=== PATIENT | male | born 1960 | race Caucasian/White ===

== ENCOUNTER 2016-12-10 16:49 | Inpatient (IN) | payer MEDICARE ==
[~2016-12-10] VITALS: Ht 170.2 cm; Wt 85.7 kg
[~2016-12-10 16:49] MED LIST: ALBU18HF INH; ASPI81TA3 PO; CITA20TA11 PO; ETOD500T PO; HYDR-3797 PO; INSU100C8 SUBQ; METO-301 PO; OMEP20CA11 PO; ONDA4TAB9 PO; PRAV40TA PO; TAMS0.4C98 PO
[2016-12-10 16:52] VITALS: BP 187/92; PULSE 96; RESP 20; O2SAT 100
[2016-12-10 18:01] LABS: BASOPHILS % (AUTO) 0.3 % (0-3); EOSINOPHILS % (AUTO) 0.1 % (0-5); MONOCYTES % (AUTO) 3.3 % (4-12); NEUTROPHILS % (AUTO) 77.1 % (40-74); Platelet Count 363 bil/L (150-400)
[2016-12-10] MEDS ORDERED: 0.9% Sodium Chloride 1,000 ML IV ONE (18:10)
[2016-12-10] MEDS ORDERED: MetoCLOpramide 5 mg/mL 2 mL Inj IVPUSH ONE (18:10)
[2016-12-10] MEDS ORDERED: HYDROmorphone 1 mg/mL Inj IVPUSH PRN ×2 (18:20→22:45)
--- NOTE | 2016-12-10 18:20 | ED.REPORT ---
HPI-Abd Pain M 40 and Over Date of Service December 10, 2016 ED Provider: Joseph Thakkar MD 56 y/o male with a hx of insulin-dependent DM presents to the ED complaining of sudden abdominal pain, onset approximately 10 hours ago. Associated sx include 10 episodes of vomiting, mild diarrhea, trace melena and mild dysuria. He denies chest pain. He has been using insulin regularly. The pt states his sx are similar to the last he presented to the ED with this complaint. The pt has been taking Bactrim for the last 2 days for an abscess on the abdomen.He did not take any today because he was vomiting. Nursing Notes Stated Complaint: DIABETIC GASTROPARESIS Chief Complaint: Male Abdominal Pain Nursing Notes Reviewed: Yes Allergies: Coded Allergies: morphine (Verified Adverse Reaction, Intermediate, nausea, upset stomach, 10/07/15) pt said hydromorphone makes him less "upset stomach and nausea" than morphine, "not allergic to any meds, just don't like to take it" Scheduled Aspirin Chew (Aspirin Chew) 81 Mg Chew 81 MG PO DAILY Citalopram (Citalopram) 20 Mg Tablet 20 MG PO DAILY Insulin Human Lispro (HumaLOG U100 Insulin Vial) 100 Unit/Ml Unit 23.7 UNITS SC DAILY INSULIN PUMP Metoclopramide (Metoclopramide) 10 Mg Tablet 10 MG PO DAILY Omeprazole (Omeprazole) 20 Mg Capsule.dr 20 MG PO BIDWM Simvastatin (Simvastatin) 40 Mg Tablet 40 MG PO HS Tamsulosin (Flomax) 0.4 Mg Capsule 0.4 MG PO HS hydrOXYzine Hcl (HydrOXYzine Hcl) 25 Mg Tablet 25 MG PO DAILY Scheduled PRN Albuterol Sulfate (Ventolin HFA Inhaler) 200 Puff/18 Gm Inhaler 2 PUFF INH Q4 PRN PRN For Wheezing Ondansetron ODT (Zofran ODT) 4 Mg Tablet 4 MG PO Q4H PRN PRN For Nausea General Time Seen by MD: 18:09 Chief Complaint Abdominal pain Hx Obtained From: Patient Arrived By: Walk-in Sudden in Onset?: Yes Onset Occurred: 5 - 8 hours ago Symptom Duration: Since onset Location: : Diffuse Quality: Same as prior, Painful Radiation: : Does not radiate Severity: Current: Moderate Severity: Maximum: Moderate Recent Healthcare: Recent doctor visit Similar Sx Previous: Yes Past Medical History Past Medical History Notes: EDG June 2015: Showed gastritis and submucosal hemmorhage Last admission: June 30-2015 Past Medical History 1. Diabetes Mellitus Type 1, with diabetic gastroparesis and DKA - hospitalized 10/04 to 10/06/14 2. Low back pain 3. BPH 4. Nocturia 5. Urinary retention 6. Presbiopia 7. Regular Astigmatism 8. MRSA Reports: COPD, Diabetes mellitus, GERD, Hyperlipidemia Reports: Depression Past Surgical History Reports: Appendectomy, Cholecystectomy Family History noncontributory Smoking History Former Smoker Social History Alcohol Use: Denies alcohol use Drug Use: THC Other Social History: Ambulatory Status Independent Review of Systems Cardiovascular: Denies: Chest pain GI: Reports: Abdominal pain, Diarrhea, Melena (Trace), Nausea, Vomiting Male: Reports Dysuria Complete sys rev & neg: except as marked. Physical Exam Initial Vital Signs Vital Signs (First) Date Time Temp Pulse Resp B/P Pulse Ox O2 Delivery O2 Flow Rate FiO2 12/10/16 16:52 35.6 96 20 187/92 100 Room Air Initial VS: Reviewed Head / Eyes: Atraumatic, Normocephalic Neck: Supple, Full range of motion Extremities: Vascular intact, Neuro intact, No swelling, No tenderness Skin: Warm, Dry, No cyanosis Neurologic: Alert, Oriented, Nonfocal General/Constitutional: Awake, Alert, Cooperative Distress / Hydration: Positive: Distress mild Respiratory / Chest: Atraumatic, Breath sounds NL, Breath sounds = bilat, No respiratory distress, No rales, No rhonchi, No wheezing Cardiovascular: Heart rate NL, Regular rhythm, Heart sounds NL, No gallop, No murmurs, Peripheral circulation NL, Pulses = bilaterally Abdomen: Atraumatic, Soft Tenderness/Guarding/Rebound: Positive: Tender epigastric Bowel Sounds / Distention: Positive: Bowel sounds hypoactive Pt vomiting. RLQ abdominal wall has a skin puncture site for insulin puncture. It has enduration and erythema but no fluctuance. LLQ abdominal wall has insulin pump connected. Back: Atraumatic, Full range of motion Skin: Atraumatic, Color NL, No rash, Warm, Dry Color / Condition: Positive: Diaphoresis present Interpretation & Diagnostics Anion Gap = 24. Blood gas report at 192 ph 7.385 pCO2 37 pO2 53.6 cHCO3- 17.6 cBase -7.6 Lab Results Interpretation Result Diagram: 12/10/16 1745 12/10/168 Test 12/10/16 17:45 White Blood Count 8.8th/mm3 (3.8-10.1) Red Blood Count 4.62mil/mm3 (4.40-5.80) Hemoglobin 14.8g/dL (13.8-17.2) Hematocrit 41.1% (41.0-50.0) Mean Corpuscular Volume 89.0fL (81-100) Mean Corpuscular Hemoglobin 32.0pg (27.0-35.0) Mean Corpuscular Hemoglobin Concent 36.0% (32.0-37.0) Red Cell Distribution Width 12.9% (12.3-15.4) Platelet Count 363bil/L (150-400) Neutrophils (%) (Auto) 77.1% (40-74) Lymphocytes (%) (Auto) 18.6% (14-46) Monocytes (%) (Auto) 3.3% (4-12) Eosinophils (%) (Auto) 0.1% (0-5) Basophils (%) (Auto) 0.3% (0-3) Magnesium Level 2.2mg/dL (1.6-2.6) Total Bilirubin 0.9mg/dL (0.0-1.2) Aspartate Amino Transf (AST/SGOT) 38U/L (0-50) Alanine Aminotransferase (ALT/SGPT) 16U/L (0-44) Alkaline Phosphatase 144U/L (25-150) Total Protein 8.5g/dL (6.4-8.4) Albumin 4.7g/dL (3.4-5.0) Lipase 8U/L (13-60) Ketones Negative (Negative) Lab Results Interpretation: ECG Interpretation ECG Interpretation: Normal Sinus rhtyhm. Rate 95. Time: 18:45 Interpreted by: ED physician X-Ray Chest Interpretation Chest Xray Interpretation: IMPRESSION: No acute disease Dictated by: Roger Catalan M.D. on 12/10/2016 at 19:47 Approved by: Roger Catalan M.D. on 12/10/2016 at 19:48 View: Portable, 1 view Interpretation / Wet Read by: Interpret - Radiologist CT Abd / Pelvis Interpretation IMPRESSION: Overall, no definite acute abnormality. Possible long segment colonic wall thickening of the transverse and descending colon raising the possibility of nonspecific colitis although technically indeterminate and could be accentuated by bowel decompression. Clinical correlation. Possible bladder wall thickening raising possibility of cystitis. Please correlate clinically and with urinalysis. 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 Right anterior abdominal wall cellulitis. Please correlate clinically Dictated by: Roger Catalan M.D. on 12/10/2016 at 20:23 Approved by: Roger Catalan M.D. on 12/10/2016 at 20:35 Study type: Abdominal CT IV contrast Interpretation / Wet Read by: Interpret - Radiologist Re-Eval/Medical Decision Med Decision/Clinical Course Normal Sinus rhtyhm. Rate 95. Given IV normal saline, insulin pump positive and DKA insulin drip started. No acute precipitant for this episode of DKA is identified other than the patient's vomiting. Admitted to the hospitalist service on an insulin drip. Time of Eval: 18:47 Re-Evaluation/Progress Note: Rechecked pt. Discussed lab results and diagnosis. Informed the pt of the plan to admit. Pt understands and agrees with the plan. All questions answered. Time of Eval: 19:37 Patient Status: Condition improved Re-Evaluation/Progress Note: Rechecked pt who reports he is feeling better. Informed the pt an abdomen CT is needed. Pt understand ad agrees with the plan. Consultation : Referral / Consult Name: Fatimah Orellana DO Call Returned at: 21:00 Inside Sales Account Executive: Will see patient, Agrees with eval, Agrees with plan, Accepts admit Counseled Regarding: Diagnosis, Lab results, Need for admission Discharge & Departure Primary Impression: Diabetic ketoacidosis without coma Diabetes mellitus type: type 1 Qualified Code: E10.10 - Type 1 diabetes mellitus with ketoacidosis without coma Disposition: ADMITTED TO HOSPITAL Vital Signs - All Vital Signs Date Time Temp Pulse Resp B/P Pulse Ox O2 Delivery O2 Flow Rate FiO2 12/10/16 16:52 35.6 96 20 187/92 100 Room Air )( All Prior VS Reviewed: Yes Referrals: Evelyn Muse PA-C (PCP) Scribe Attestation Portions of this note were transcribed by Adali Pace. IDr.Slack, personally performed the history, physical exam and medical decision-making;I reviewed and confirmed the accuracy of the information in the transcribed note. Signed by Tj Valenzuela. 12/10/161999 copies to: Evelyn Muse PA-C, Donald L MD December 10, 2016 18:20 Adali Pace December 10, 2016 18:29 12/10/16 16:52 35.6 96 20 187/92 100 Room Air )( All Prior VS Reviewed: Yes Referrals: Evelyn Muse PA-C (PCP) Scribe Attestation Portions of this note were transcribed by Adali Pace. I, , personally performed the history, physical exam and medical decision-making;I reviewed and confirmed the accuracy of the information in the transcribed note. Signed by Tj Valenzuela. 12/10/161999 copies to: Evelyn Muse PA-C, Donald L MD December 10, 2016 18:20 Adali Pace December 10, 2016 18:29 Joseph Thakkar MD December 10, 2016 18:20 Adali Pace December 10, 2016 18:29
[2016-12-10 18:24] LABS: Magnesium 2.2 mg/dL (1.6-2.6)
[2016-12-10] MEDS ORDERED: D5W1/2NS 1,000 mL IV PRN (18:45)
[2016-12-10] MEDS ORDERED: Insulin Human REGular 300 Unit/3 mL Inj IV ONE (18:45)
[2016-12-10] MEDS: Ondansetron 2 mg/mL 2 mL Inj IVPUSH PRN ×2 (18:45→20:26)
[2016-12-10] MEDS ORDERED: Dextrose 10% 250 ML IV PRN (18:45)
--- NOTE | 2016-12-10 19:22 | ABG ---
DateTimeAnalyzed 19:18:00 -_ pH ____7.305 - pCO2 ___36.5__ -mmHg pO2 ___53.6__ -mmHg HCO3- ___17.6__ -mmol/L ABE ___-7.6__ -mmol/L tHb ___12.7__ -g/dL O2Hb ___81.0__ -% COHb ____1.1__ -% MetHb ____1.1__ -% sO2 ___82.8__ -% FIO2 ___21.0__ -% Drawn By MK - Date/Time Notified____ 19:21:00 -_ Age 49 -years B 753 -mmHg tO2 ___14.5__ -Vol% Corbin test N/A -
[2016-12-10] MEDS: Insulin Human REGular 100 Units/100 mL NS IV SCH ×4 (19:30→20:55)
--- NOTE | 2016-12-10 19:50 | DRSVH ---
PROCEDURE: X-RAY CHEST ONE VIEW, PORTABLE ([id number]) INDICATIONS: DKA TECHNIQUE: One view of the chest was acquired. COMPARISON: [facility], CR, XR CHEST 1VW (PORTABLE), 06/30/2015, 11:48. FINDINGS: Surgical changes and devices: None. Lungs and pleura: No pleural effusions or pneumothorax. Lungs are clear. Mild scarring Mediastinum: Mediastinal contours appear normal. Heart size is normal. Bones and chest wall: No suspicious bony lesions. Overlying soft tissues appear unremarkable. IMPRESSION: No acute disease Dictated by: Roger Catalan M.D. on 12/10/2016 at 19:47 Approved by: Roger Catalan M.D. on 12/10/2016 at 19:48
[2016-12-10] MEDS ORDERED: INSLIS SC (20:16)
[2016-12-10] MEDS ORDERED: SIMV40TA5 PO (20:16)
[2016-12-10] MEDS ORDERED: METO10TA3 PO (20:20)
[2016-12-10] MEDS ORDERED: HYDR-656 PO (20:20)
--- NOTE | 2016-12-10 20:37 | DRSVH ---
PROCEDURE: CT ABDOMEN AND PELVIS WITH CONTRAST ([id number]) INDICATIONS: epigastric pain TECHNIQUE: After the administration of intravenous contrast, 5 mm thick sections acquired from the diaphragm to the symphysis. 5 mm coronal and sagittal reformats were acquired. For radiation dose reduction, the following was used: automated exposure control, adjustment of mA and/or kV according to patient siz e. COMPARISON: None. FINDINGS: Image quality: Excellent. ABDOMEN: Lung bases: Left basilar calcified pleural plaque raising the possibility of asbestos related pleural disease. Scattered atelectasis. Solid organs: Liver and spleen are normal in size and enhancement. Gallbladder surgically absent. Biliary system is non dilated. Pancreas enhances normally. No adrenal nodules. Kidneys demonstrate normal size and enhancement, without hydronephrosis. Multiple subcentimeter bilateral renal cysts a lthough technically too small to characterize definitively. Peritoneum and bowel: Small hiatal hernia. No bowel obstruction. There is questionable long segment c olonic wall thickening involving the transverse and descending colon however this may be falsely acce ntuated by decompressed state No free air or free fluid. Appendix not visualized and may be surgicall y absent. The rectum is decompressed otherwise unremarkable. Nodes and vessels: No retroperitoneal or mesenteric adenopathy by size criteria. Aorta and inferior vena cava are normal in size. Miscellaneous: No ventral hernias. Right anterior abdominal wall skin thickening and subcutaneous s tranding PELVIS: Genitourinary: Possible mild circumferential bladder wall thickening Miscellaneous: No inguinal hernias or adenopathy. Bones: Bilateral L5 pars defects. No suspicious bony lesions. No vertebral body compression fractur es. IMPRESSION: Overall, no definite acute abnormality. Possible long segment colonic wall thickening of the transver se and descending colon raising the possibility of nonspecific colitis although technically indetermi annia and could be accentuated by bowel decompression. Clinical correlation. Possible bladder wall thickening raising possibility of cystitis. Please correlate clinically and wit h urinalysis. 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 Right anterior abdominal wall cellulitis. Please correlate clinically Dictated by: Roger Catalan M.D. on 12/10/2016 at 20:23 Approved by: Roger Catalan M.D. on 12/10/2016 at 20:35
[2016-12-10 20:44] LABS: APPEARANCE,URINE CLEAR (CLEAR,HAZY); COLOR,URINE YELLOW (YELLOW); OCCULT BLOOD,URINE NEGATIVE (NEGATIVE); UROBILINOGEN,URINE NORMAL (NORMAL)
[2016-12-10] MEDS ORDERED: Polyethylene Glycol (PEG) 17 Gm Powder PO PRN (21:10)
[2016-12-10] MEDS ORDERED: Senna-Docusate 8.6-50 mg Tablet PO PRN (21:10)
[2016-12-10] MEDS ORDERED: Ondansetron 2 mg/mL 2 mL Inj IVPUSH PRN (21:10)
[2016-12-10] MEDS ORDERED: Alum-Mag Hydrox-Simeth 30 mL Suspension PO PRN (21:10)
[2016-12-10] MEDS ORDERED: DEXTROSE 5% IV ONE (22:15)
[2016-12-10] MEDS ORDERED: POTASSIUM PHOS IV ONE (22:15)
[2016-12-10] MEDS ORDERED: HYDROcodone-APAP 5-325 mg Tablet PO PRN (22:25)
--- NOTE | 2016-12-10 22:33 | PCM.HPMED ---
Subjective Date of Service December 10, 2016 Primary Provider: Admitting Physician: Fatimah Orellana DO Primary Care Physician: Evelyn Muse PA-C Attending Physician: Fatimah Orellana DO Admit Status: From the Emergency Department Chief Complaint: Nausea and vomiting, abdominal pain. History of Present Illness: Mr. Michael Reyes is a pleasant 56-year-old gentleman here today for sudden onset abdominal pain roughly 10 hours ago associated with roughly 10 episodes of vomiting. He reports nausea and mild diarrhea, initially clear vomitus with subsequent episodes of vomiting showing mild coffee-ground emesis. He has past medical history significant for insulin requiring diabetes with DKA and hospital admissions multiple times, colitis, MRSA, depression, COPD, GERD, hyperlipidemia, low back pain. The patient reports that recently he has not been eating well and for the last 3 days has decided that if he was not eating he did not need to check his blood sugars nor take his insulin. Of note patient was previously alcohol free since and has started drinking again 3 months ago. He is now drinking 2-3 Coors lights per night, which he states he started drinking again because he quit smoking marijuana. The pt has been taking Bactrim for the last 2 days for an abscess on the abdomen.He did not take any today because he was vomiting. He also reports he has not taken his nightly meds today. In the emergency department patient's vitals were as follows; Temperature 35.6 C , pulse 96, respiratory rate 20, blood pressure 187/92, pulse ox 100% on room. Significant labs are as follows; WBC 8.8, hemoglobin 14.8, platelets 363, neutrophils 77.1, sodium 136, potassium 5.5, chloride 95, CO2 17, BUN 27, creatinine 1.36, glucose 411, calcium 10.1, mag 2.2, troponin negative, LFTs normal, protein 8.5, lipase 8. Urine; yellow, clear, greater than 1000 glucose, greater than 80 ketones, negative leukocyte esterase, negative nitrites, no casts/crystals. ABG in the emergency department shows pH 7.3, CO2 36.5, O2 53.6, bicarbonate 17.6. EKG in the emergency department: Normal sinus rhythm heart rate 95, no ST elevations or depressions noted. Chest x-ray - no acute disease. CT abdomen IMPRESSION: Overall, no definite acute abnormality. Possible long segment colonic wall thickening of the transverse and descending colon raising the possibility of nonspecific colitis although technically indeterminate and could be accentuated by bowel decompression. Clinical correlation. Possible bladder wall thickening raising possibility of cystitis. Please correlate clinically and with urinalysis. 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 Right anterior abdominal wall cellulitis. Please correlate clinically In the emergency department patient received IV Dilaudid for abdominal pain, regular insulin, Reglan, Zofran, 3L IV fluids. Review of Systems: Constitutional: Reports decreased appetite, denies weight gain or weight loss, denies fever, chills, night sweats. HEENT: Denies change in vision, hearing. Denies facial pain or numbness. Cardiac: Denies irregular heartbeat, racing heart, chest pains, palpitations. Respiratory: Denies shortness of breath, cough, wheezing, pleurisy. Gastrointestinal: Reports nausea, vomiting, abdominal pain. Denies diarrhea, difficulty swallowing, hematochezia, change in bowel or bladder habits. : Denies dysuria, urgency. Reports some nocturia. Musculoskeletal: Denies joint pain, muscle pain, back pain. Integumentary: Denies rash, itching, lesion, wounds. Neurologic: Denies headache, change in vision, weakness, dizziness, syncope, tremor. Psychiatric denies depression and anxiety. Hematologic: Denies easy bruising, bleeding, lymphadenopathy. Complete review of systems obtained. Positive as above and in HPI otherwise negative. Allergies Coded Allergies: morphine (Verified Adverse Reaction, Intermediate, nausea, upset stomach, 10/07/15) pt said hydromorphone makes him less "upset stomach and nausea" than morphine, "not allergic to any meds, just don't like to take it" Home Medications Aspirin Chew (Aspirin Chew) 81 Mg Chew 81 MG PO DAILY Citalopram (Citalopram) 20 Mg Tablet 20 MG PO DAILY Insulin Human Lispro (HumaLOG U100 Insulin Vial) 100 Unit/Ml Unit 23.7 UNITS SC DAILY INSULIN PUMP Metoclopramide (Metoclopramide) 10 Mg Tablet 10 MG PO DAILY Omeprazole (Omeprazole) 20 Mg Capsule.dr 20 MG PO BIDWM Simvastatin (Simvastatin) 40 Mg Tablet 40 MG PO HS Tamsulosin (Flomax) 0.4 Mg Capsule 0.4 MG PO HS hydrOXYzine Hcl (HydrOXYzine Hcl) 25 Mg Tablet 25 MG PO DAILY Scheduled PRN Albuterol Sulfate (Ventolin HFA Inhaler) 200 Puff/18 Gm Inhaler 2 PUFF INH Q4 PRN PRN For Wheezing Ondansetron ODT (Zofran ODT) 4 Mg Tablet 4 MG PO Q4H PRN PRN For Nausea PMH 1. Diabetes Mellitus Type 1, with diabetic gastroparesis and DKA - hospitalized 10/04 to 10/06/14, S/P EGD x 3 2. Low back pain 3. BPH 4. Nocturia 5. Urinary retention 6. Presbiopia 7. Regular Astigmatism 8. MRSA COPD, GERD, Hyperlipidemia Depression Surgical History Appendectomy, Cholecystectomy Family History Mom and Dad both had lung ca; 2 sibs A+W. No natural children. Social History Occupation: Retired on disability Hx Alcohol Use: Yes Alcoholic Drinks Per Day: 2-3 BEERS Hx Substance Use: Yes (Vaporized marijauna) Smoking Status: Former Smoker (30 + pk years, quit ~15 yrs ago) Living Arrangement: Alone Additional Information no natural children Exam Vital Signs Vital Sign - Last Date Time Temp Pulse Resp B/P Pulse Ox O2 Delivery O2 Flow Rate FiO2 12/10/16 16:52 35.6 96 20 187/92 100 Room Air Exam General: No acute distress, well-developed, well-nourished, appropriately interactive HEENT: Normocephalic, atraumatic. External ears without defect. Pupils equal, round, and reactive to light and accommodation. Anicteric sclerae, moist conjunctivae, and no lid lag. Oropharynx free of erythema and cobble stoning with moist mucosa. Neck: Supple with full range of motion. No jugular venous distension. No bruits. No lymphadenopathy or thyromegaly. Cardiovascular: Regular rate and rhythm with no murmurs, rubs, or gallops appreciated Pulmonary: Clear to auscultation bilaterally with no crackles, wheezes, or rhonchi. Normal respiratory effort with no use of accessory muscles. Abdomen: Bowel tones present. Soft, nontender, nondistended. No hepatosplenomegaly or masses appreciated. Extremities: No clubbing, cyanosis, edema, or lymphadenopathy appreciated. Skin: Normal temperature, turgor, and texture; no rash, ulcers, or subcutaneous nodules appreciated. Neurological: Cranial nerves grossly intact. Normal muscle strength, tone, and bulk. Reflexes, coordination, and sensory function within normal limits. No known gait impairment. Psychiatric: Normal mood and affect. Alert and oriented to person, place, and time. Lab and Diagnostics Result Diagram: 12/10/16174412/10/161744 X-Rays, CTs and MRIs X-RAY CHEST ONE VIEW, PORTABLE IMPRESSION: No acute disease Dictated by: Roger Catalan M.D. on 12/10/2016 at 19:47 CT ABDOMEN AND PELVIS WITH CONTRAST IMPRESSION: Overall, no definite acute abnormality. Possible long segment colonic wall thickening of the transverse and descending colon raising the possibility of nonspecific colitis although technically indeterminate and could be accentuated by bowel decompression. Clinical correlation. Possible bladder wall thickening raising possibility of cystitis. Please correlate clinically and with urinalysis. 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 Right anterior abdominal wall cellulitis. Please correlate clinically Dictated by: Roger Catalan M.D. on 12/10/2016 at 20:23 Additional Diagnostics: ABG (VBG?) DateTimeAnalyzed 19:18:00 -_ pH ____7.305 - pCO2 ___36.5__ -mmHg pO2 ___53.6__ -mmHg HCO3- ___17.6__ -mmol/L Assessment & Plan Mr. Michael Reyes is a pleasant 56-year-old gentleman here today for sudden onset abdominal pain roughly 10 hours ago associated with roughly 10 episodes of vomiting. He reports nausea and mild diarrhea, initially clear vomitus with subsequent episodes of vomiting showing mild coffee-ground emesis. He has past medical history significant for insulin requiring diabetes with DKA and hospital admissions multiple times, colitis, MRSA, depression, COPD, GERD, hyperlipidemia, low back pain. The patient reports that recently he has not been eating well and for the last 3 days he decided that if he was not eating he didn't need to check his blood sugars nor take his insulin. Of note patient was previously alcohol free since 87 and has started drinking again 3 months ago. He is now drinking 2-3 Coors lights per night, he started drinking again because he quit smoking marijuana. Patient lives in [place], lives alone, currently on disability. Denies smoking. The pt has been taking Bactrim for the last 2 days for an abscess on the abdomen.He did not take any today because he was vomiting. He also reports he has not taken his nightly meds today. 1. Diabetic Ketoacidosis, present on admission. Activity. - Multiple hospital admissions for DKA in the past. To 3 beers per night. - UA > 1000 glucose, 80 ketones. - DKA insulin protocol started. Stopped home insulin pump. - 3 L NS given in the ED, current rate at 250 mL per hour. - Thiamine injection. - Lipase 8. - Troponin negative x1, repeat every 6H pending. 2. High anion gap hyperchloremic metabolic acidosis, present on admission. Resolving. - ABG as above. PH 7.3, CO2 36, bicarbonate 17. - Cor sodium 143, (glucose 411, sodium 136), potassium 5.5, chloride 95, bicarbonate 17. Lactic acid pending - Anion Gap 30 on admission. Currently 20. - Continue IV fluids as above. 3. Acute kidney injury, present on admission. Improving. - Creatinine upon admission 1.36, baseline 0.8. - Continue IV fluids, 4. Hematemesis, present on admission. Stable. - concerning for jace barraza tear vs PUD. - Follow HH. Current Hgb - 14.8 - Continue home PPI. 5. Abdominal wall cellulitis, acute - continue tmp-smx 6. Chronic gastroparesis, present on admission. Active. - Continue Zofran when necessary nausea and vomiting. - Continue home Reglan. 7. Insulin requiring diabetes, present on admission. Uncontrolled and active. - DKA insulin protocol started. - IV fluids. - A1c pending. 8. COPD, present on admission. Stable. - Continue home albuterol when necessary. 9. Chronic Depression, present on admission. Stable. - Continue home medications. 10. Chronic BPH, present on admission. Stable. - Continue home medications. 11. Chronic GERD, present on admission. Stable. - Continue home omeprazole. 12. Chronic hyperlipidemia, present on admission. Treated. - Lipid panel pending - Continue home statin. Acetaminophen for mild pain when necessary. Bowel regimen Senna and MiraLAX scheduled and PRN. Zofran when necessary for nausea and vomiting. SubQ heparin held for now. SCDs in place. High-risk medications: IV Dilaudid Insulin ggt. Disposition: Patient has been admitted under inpatient status. Discharge is dependent upon DKA, nausea, vomiting. Discharge home when medically stable. Pain Evaluation: Adequate Pain Control Resuscitation Status: CPR: Attempt Resuscitation Attending Statement The patient was seen and examined together with house staff on 12/10/2016 and I agree with the history, exam and plan as outlined in the note above. JOSEPH ROJO DO December 10, 2016 21:24 Fatimah Orellana DO December 11, 2016 01:05
[2016-12-10] MEDS: 0.9% Sodium Chloride 1,000 ML IV SCH (22:37)
[2016-12-10] MEDS ORDERED: Albuterol HFA 60 Puff 8 Gm Inhaler INHALATION PRN (22:40)
[2016-12-10] MEDS ORDERED: hydrOXYzine 2 mg/mL 473 mL Syrup PO ONE (22:40)
[2016-12-10] MEDS: Thiamine Inj 200 MG in Dextrose 5% 50 ML IV SCH (23:07)
[2016-12-10] MEDS ORDERED: Albuterol 2.5 mg/3 mL Inhalation Solution NEB PRN (23:10)
[2016-12-10] MEDS: Heparin 5,000 Unit/mL Inj SUBQ SCH (23:47)
[2016-12-11 00:30] VITALS: BP 122/50; PULSE 83; O2SAT 94
[2016-12-11] MEDS: 0.9% Sodium Chloride 1,000 ML IV SCH ×4 (02:59→14:30)
[2016-12-11 04:30] VITALS: BP 118/56; PULSE 76; O2SAT 96
[2016-12-11 06:15] LABS: BASOPHILS % (AUTO) 0 % (0-3); EOSINOPHILS % (AUTO) 0 % (0-5); MONOCYTES % (AUTO) 6.2 % (4-12); Mean Corpuscular Hemoglobin 31.5 pg (27.0-35.0); Mean Corpuscular Volume 95.1 fL (81-100); Platelet Count 220 bil/L (150-400)
[2016-12-11] MEDS ORDERED: Trimethoprim-Sulfa 160 mg-800 mg Tablet PO SCH (08:30)
[2016-12-11] MEDS: Heparin 5,000 Unit/mL Inj SUBQ SCH ×2 (08:30→16:30)
[2016-12-11] MEDS: Thiamine Inj 200 MG in Dextrose 5% 50 ML IV SCH (08:42)
[2016-12-11 12:30] VITALS: PULSE 78
[2016-12-11] MEDS ORDERED: Albuterol-Ipratropium 3 mL Inhalation Solution NEB SCH (14:30)
--- NOTE | 2016-12-11 15:39 | PCM.DIMED ---
Discharge Instructions Date of Service December 11, 2016 Dates of Hospitalization December 10, 2016 at 19:34 Discharge Diagnosis Discharge Diagnosis diabetes mellitus, insulin-dependent; metabolic acidosis, non-DKA; Medication Instructions Additional med instructions Return to your usual insulin pump settings. Diet Discharge Diet: Diabetic Activity Discharge Activity: No restrictions Call your provider Call your provider for: Vomitting Patient Instructions Patient Instructions #1 Do not ignore your blood glucose for long periods when you are busy or distracted. #2 You need to develop a routine to check blood sugar throughout the day, to administer correctional insulin before you develop very high sugars later in the day. #3 Maintain good hydration, even if you are not eating. . Follow-up Provider: Evelyn Muse PA-C Follow-up with PCP in: 1 week (follow-up appointment with PCP) Waqas Jones MD December 11, 2016 15:39
--- NOTE | 2016-12-11 16:53 | PCM.DC.MED ---
Discharge Summary Date of Service December 11, 2016 Dates of Hospitalization Date of Hospital Admission December 10, 2016 at 19:34 Date of Discharge: December 11, 2016 Providers: Admitting Physician: Fatimah Orellana DO Primary Care Physician: Evelyn Muse PA-C Attending Physician: Fatimah Orellana DO Diagnosis at Time of Discharge Diagnosis at Time of Discharge diabetes mellitus, insulin-dependent; metabolic acidosis, non-DKA; Procedures XRay, CTs & MRIs X-RAY CHEST ONE VIEW, PORTABLE IMPRESSION: No acute disease Dictated by: Roger Catalan M.D. on 12/10/2016 at 19:47 CT ABDOMEN AND PELVIS WITH CONTRAST IMPRESSION: Overall, no definite acute abnormality. Possible long segment colonic wall thickening of the transverse and descending colon raising the possibility of nonspecific colitis although technically indeterminate and could be accentuated by bowel decompression. Clinical correlation. Possible bladder wall thickening raising possibility of cystitis. Please correlate clinically and with urinalysis. 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 Right anterior abdominal wall cellulitis. Please correlate clinically Dictated by: Roger Catalan M.D. on 12/10/2016 at 20:23 Other Diagnostics ABG (VBG?) DateTimeAnalyzed 19:18:00 -_ pH ____7.305 - pCO2 ___36.5__ -mmHg pO2 ___53.6__ -mmHg HCO3- ___17.6__ -mmol/L Brief History History of Present Illness (per admission note): Mr. Michael Reyes is a pleasant 56-year-old gentleman here today for sudden onset abdominal pain roughly 10 hours ago associated with roughly 10 episodes of vomiting. He reports nausea and mild diarrhea, initially clear vomitus with subsequent episodes of vomiting showing mild coffee-ground emesis. He has past medical history significant for insulin requiring diabetes with DKA and hospital admissions multiple times, colitis, MRSA, depression, COPD, GERD, hyperlipidemia, low back pain. The patient reports that recently he has not been eating well and for the last 3 days has decided that if he was not eating he did not need to check his blood sugars nor take his insulin. Of note patient was previously alcohol free since 87 and has started drinking again 3 months ago. He is now drinking 2-3 Coors lights per night, which he states he started drinking again because he quit smoking marijuana. The pt has been taking Bactrim for the last 2 days for an abscess on the abdomen.He did not take any today because he was vomiting. He also reports he has not taken his nightly meds today. In the emergency department patient's vitals were as follows; Temperature 35.6 C , pulse 96, respiratory rate 20, blood pressure 187/92, pulse ox 100% on room. Significant labs are as follows; WBC 8.8, hemoglobin 14.8, platelets 363, neutrophils 77.1, sodium 136, potassium 5.5, chloride 95, CO2 17, BUN 27, creatinine 1.36, glucose 411, calcium 10.1, mag 2.2, troponin negative, LFTs normal, protein 8.5, lipase 8. Urine; yellow, clear, greater than 1000 glucose, greater than 80 ketones, negative leukocyte esterase, negative nitrites, no casts/crystals. ABG in the emergency department shows pH 7.3, CO2 36.5, O2 53.6, bicarbonate 17.6. EKG in the emergency department: Normal sinus rhythm heart rate 95, no ST elevations or depressions noted. . Hospital Course 1. Acute hyperglycemia with metabolic acidosis, present on admission. Activity. Mild and no serum ketones. Patient had good insight that this crisis was due to poor glucose monitoring, irregularity dietary habits and lapses in bolus and nutritional insulin dosing. - Treated with IV insulin DKA protocol x 16hr, then SC insulin - Gap normalized tolerating by mouth intake and subcutaneous insulin on pump with reasonable glycemic control prior to discharge 2. High anion gap hyperchloremic metabolic acidosis, present on admission. Resolved. 3. Acute kidney injury, present on admission. - Resolving 4. Hematemesis, present on admission. Stable. Patient gave history of dark- colored emesis. This did not recur during hospitalization. Hemoglobin was stable. - Continue home PPI. 5. Abdominal wall cellulitis, chronic. -No evidence of active soft tissue abscess or cellulitis at this time 6. Recurrent vomiting syndrome. Possible gastroparesis, present on admission, chronic recurrent.. Active. - Continue home Reglan. 7. Insulin requiring diabetes, present on admission. Uncontrolled and active. - Continue insulin pump per previous settings. 8. COPD, present on admission. Stable. No bronchospasm - Continue home albuterol 9. Chronic Depression, present on admission. Stable. - Continue home medications. 10. Chronic BPH, present on admission. Stable. - Continue home medications. 11. Chronic GERD, present on admission. Stable. - Continue home omeprazole. 12. Chronic hyperlipidemia, present on admission. Treated. - Continue home statin. 13. Alcohol misuse. Patient counseled regarding importance of self-care and reasonable limits on alcohol. . Exam Vital Signs (Last) Date Time Temp Pulse Resp B/P Pulse Ox O2 Delivery O2 Flow Rate FiO2 12/11/16 12:30 78 12/11/16 04:30 37.0 118/56 96 Room Air 12/10/16 16:52 20 Exam General: Healthy-appearing, no acute distress HEENT: sclerae anicteric, oral mucosa moist Neck: no JVD Chest: clear to auscultation; no Kussmaul breathing; Cardiac: S1S2, no murmur Abdomen: BS normal, non-tender; scattered mostly healed lesions; right lower waistline 3 cm induration without fluctuance or warmth or erythema Extremities: No edema Neuro: A&O, cranial nerves symmetric, motor strength 5/5, coordination normal Test 12/10/16 17:45 12/10/16 20:11 12/10/16 20:58 12/10/16 22:00 Magnesium Level 2.2mg/dL (1.6-2.6) Lipase 8U/L (13-60) Ketones Negative (Negative) Urine Color Yellow (YELLOW) Urine Appearance Clear (CLEAR,HAZY) Urine pH 6.0 (5.0-8.0) Urine Specific [place] 1.015 (1.003-1.035) Urine Protein Negativemg/dL (NEG,TRACE) Urine Glucose (UA) >1000mg/dL (NEGATIVE) Urine Ketones >80mg/dL (NEGATIVE) Urine Occult Blood Negative (NEGATIVE) Urine Nitrite Negative (NEGATIVE) Urine Bilirubin Negative (NEGATIVE) Urine Urobilinogen Normalmg/dL (NORMAL) Urine Leukocyte Esterase Negative (NEGATIVE) Urine RBC 0-2/hpf (0-2) Urine WBC 0-5/hpf (0-5) Urine Epithelial Cells Few/hpf (NONE-MOD) Urine Crystals None seen (NONE SEEN) Urine Bacteria Few/hpf (NONE-FEW) Urine Hyaline Casts None/lpf (NONE) Urine Granular Casts None seen (NONE SEEN) Urine Waxy Casts None seen (NONE SEEN) Urine Red Blood Cell Casts None seen (NONE SEEN) Urine White Blood Cell Casts None seen (NONE SEEN) Urine Mucus None seen (None Seen) Urine Trichomonas None seen (NONE SEEN) Urine Yeast None (NONE SEEN) Urinalysis Comment None Urine Culture Reflexed Not indicated Phosphorus Level 2.0mg/dL (2.5-4.9) Lactic Acid Level 1.2mmol/L (0.4-2.0) Triglycerides Level 177mg/dL (0-149) Cholesterol Level 208mg/dL (100-199) LDL Cholesterol, Calculated 142.600mg/dL (0-99) VLDL Cholesterol 35.400mg/dL HDL Cholesterol 30mg/dL (>39) Cholesterol/HDL Ratio 6.93 (0.0-4.4) Test 12/11/16 00:08 12/11/16 01:30 12/11/16 05:00 Troponin T 0.010ug/L (0.0-0.011) Hold Urine Received (Received) White Blood Count 7.2th/mm3 (3.8-10.1) Red Blood Count 4.06mil/mm3 (4.40-5.80) Hemoglobin 12.8g/dL (13.8-17.2) Hematocrit 38.6% (41.0-50.0) Mean Corpuscular Volume 95.1fL (81-100) Mean Corpuscular Hemoglobin 31.5pg (27.0-35.0) Mean Corpuscular Hemoglobin Concent 33.2% (32.0-37.0) Red Cell Distribution Width 13.4% (12.3-15.4) Platelet Count 220bil/L (150-400) Neutrophils (%) (Auto) 81.0% (40-74) Lymphocytes (%) (Auto) 12.5% (14-46) Monocytes (%) (Auto) 6.2% (4-12) Eosinophils (%) (Auto) 0% (0-5) Basophils (%) (Auto) 0% (0-3) Hold Purple Top Tube Received (Received) Sodium Level 146mEq/L (134-144) Potassium Level 4.1mEq/L (3.5-5.2) Chloride Level 109mEq/L (97-108) Carbon Dioxide Level 25mmol/L (18-29) Blood Urea Nitrogen 14mg/dL (6-24) Creatinine 0.86mg/dL (0.76-1.27) Estimat Glomerular Filtration Rate 98mL/min (>59) Glucose Level 117mg/dL (60-99) Calcium Level 8.9mg/dL (8.5-10.1) Total Bilirubin 0.4mg/dL (0.0-1.2) Aspartate Amino Transf (AST/SGOT) 16U/L (0-50) Alanine Aminotransferase (ALT/SGPT) 13U/L (0-44) Alkaline Phosphatase 77U/L (25-150) Total Protein 6.1g/dL (6.4-8.4) Albumin 3.5g/dL (3.4-5.0) Hold [place] Top Tube Received (Received) Discharge Medications Discharge Medications Aspirin Chew (Aspirin Chew) 81 Mg Chew 81 MG PO DAILY (Reported) Citalopram (Citalopram) 20 Mg Tablet 20 MG PO DAILY (Reported) Insulin Human Lispro (HumaLOG U100 Insulin Vial) 100 Unit/Ml Unit 23.7 UNITS SC DAILY (Reported) INSULIN PUMP Metoclopramide (Metoclopramide) 10 Mg Tablet 10 MG PO DAILY (Reported) Omeprazole (Omeprazole) 20 Mg Capsule.dr 20 MG PO BIDWM (Reported) Simvastatin (Simvastatin) 40 Mg Tablet 40 MG PO HS (Reported) Tamsulosin (Flomax) 0.4 Mg Capsule 0.4 MG PO HS (Reported) hydrOXYzine Hcl (HydrOXYzine Hcl) 25 Mg Tablet 25 MG PO DAILY (Reported) As needed Albuterol Sulfate (Ventolin HFA Inhaler) 200 Puff/18 Gm Inhaler 2 PUFF INH Q4 PRN PRN For Wheezing (Reported) Ondansetron ODT (Zofran ODT) 4 Mg Tablet 4 MG PO Q4H PRN PRN For Nausea ( Reported) Additional med instructions Return to your usual insulin pump settings. Followup Plan Disposition: Home Discharge Diet: Diabetic Discharge Activity: No restrictions Patient Instructions #1 Do not ignore your blood glucose for long periods when you are busy or distracted. #2 You need to develop a routine to check blood sugar throughout the day, to administer correctional insulin before you develop very high sugars later in the day. #3 Maintain good hydration, even if you are not eating. . Follow-up Provider: Evelyn Muse PA-C Follow-up with PCP in: 1 week (follow-up appointment with PCP) Time spent 35 minutes copies to: Evelyn Muse PA-C, Jeffrey W MD December 11, 2016 16:53
== END 2016-12-11 18:13 | disposition home or self-care (01) | DRG 638 ==
LOC: EDBD → SED 16:49 → PCC 19:34 → CCU 21:11 → PCC 12-11 11:38
PROVIDERS: ADMIT Internal Medicine; ATTEND Internal Medicine
PROC: 4A033R1 Measurement of Arterial Saturation, Peripheral, Percutaneous Approach (ICD-10-PCS; principal; 2016-12-10)
DX: E10.65 Type 1 diabetes mellitus with hyperglycemia (principal); N17.9 Acute kidney failure, unspecified; K92.0 Hematemesis; L03.311 Cellulitis of abdominal wall; J44.9 Chronic obstructive pulmonary disease, unspecified; F32.9 Major depressive disorder, single episode, unspecified; N40.0 Benign prostatic hyperplasia without lower urinary tract symptoms; K21.9 Gastro-esophageal reflux disease without esophagitis; E78.5 Hyperlipidemia, unspecified; Z87.891 Personal history of nicotine dependence; E10.43 Type 1 diabetes mellitus with diabetic autonomic (poly)neuropathy; K31.84 Gastroparesis; E10.628 Type 1 diabetes mellitus with other skin complications

== ENCOUNTER 2016-12-12 14:00 | Inpatient (IN) | payer MEDICARE ==
[~2016-12-12] VITALS: Ht 170.2 cm; Wt 85.5 kg
[~2016-12-12 14:00] MED LIST changes: -ETOD500T PO; -HYDR-3797 PO; +HYDR-656 PO; +INSLIS SC; -INSU100C8 SUBQ; -METO-301 PO; +METO10TA3 PO; -PRAV40TA PO; +SIMV40TA5 PO
--- NOTE | 2016-12-12 14:14 | ABG ---
DateTimeAnalyzed 14:05:00 -_ pH ____7.404 - pCO2 ___29.2__ -mmHg pO2 ___46.6__ -mmHg HCO3- ___17.9__ -mmol/L ABE ___-5.1__ -mmol/L tHb ___14.2__ -g/dL O2Hb ___80.3__ -% COHb ____1.6__ -% MetHb ____1.0__ -% sO2 ___82.4__ -% FIO2 ___21.0__ -% Drawn By as - Date/Time Notified____ 14:13:00 -_ Notified By ams - Notified Whom dr [place] - B 759 -mmHg tO2 ___16.0__ -Vol% Corbin test N/A -
[2016-12-12 14:15] VITALS: BP 197/93; PULSE 88; RESP 20; O2SAT 99
[2016-12-12] MEDS ORDERED: Ondansetron 2 mg/mL 2 mL Inj ONE (14:16)
[2016-12-12] MEDS ORDERED: 0.9% Sodium Chloride 1,000 ML IV ONE ×2 (14:26→15:25)
[2016-12-12] MEDS ORDERED: Pantoprazole 4 mg/mL 10 mL Inj IVPUSH ONE (14:30)
[2016-12-12] MEDS ORDERED: MetoCLOpramide 5 mg/mL 2 mL Inj IVPUSH ONE (14:30)
[2016-12-12] MEDS ORDERED: Ketorolac 15 mg/mL Inj IVPUSH ONE (14:30)
--- NOTE | 2016-12-12 14:31 | ED.REPORT ---
HPI-Abd Pain M 40 and Over Date of Service December 12, 2016 ED Provider: Sushil Alaniz MD A 56 year old male with a history of insulin dependent diabetes mellitus and DKA requiring hospitalization, COPD, GERD and hyperlipidemia presents to the ED complaining of abdominal pain that began yesterday. Associated symptoms include nausea and vomiting. He reports experiencing similar symptoms during previous episodes of hyperglycemia. Patient was seen in the ED and admitted on 12/10 for diabetic ketoacidosis. Patient was discharged yesterday in good condition following reassuring CT and symptoms completely resolved. He denies taking any pain medication today. Nursing Notes Stated Complaint: GENERAL Chief Complaint: Male Abdominal Pain Nursing Notes Reviewed: Yes Allergies: Coded Allergies: morphine (Verified Adverse Reaction, Intermediate, nausea, upset stomach, 10/07/15) pt said hydromorphone makes him less "upset stomach and nausea" than morphine, "not allergic to any meds, just don't like to take it" Scheduled Aspirin Chew (Aspirin Chew) 81 Mg Chew 81 MG PO QAM Citalopram (Citalopram) 20 Mg Tablet 20 MG PO DAILY Insulin Human Lispro (HumaLOG U100 Insulin Vial) 100 Unit/Ml Unit 23.7 UNITS SC DAILY INSULIN PUMP Metoclopramide (Metoclopramide) 10 Mg Tablet 10 MG PO DAILY Omeprazole (Omeprazole) 20 Mg Capsule.dr 20 MG PO BIDWM Simvastatin (Simvastatin) 40 Mg Tablet 40 MG PO HS Tamsulosin (Flomax) 0.4 Mg Capsule 0.4 MG PO HS hydrOXYzine Hcl (HydrOXYzine Hcl) 25 Mg Tablet 25 MG PO QAM Scheduled PRN Albuterol Sulfate (Ventolin HFA Inhaler) 200 Puff/18 Gm Inhaler 2 PUFF INH Q4 PRN PRN For Wheezing Ondansetron ODT (Zofran ODT) 4 Mg Tablet 4 MG PO Q4H PRN PRN For Nausea General Time Seen by MD: 14:26 Chief Complaint Abdominal pain Hx Obtained From: Patient Arrived By: Walk-in Sudden in Onset?: No Onset Occurred: 3 days ago Symptom Duration: Since onset Progression since Onset: Unchanged Location: : Diffuse Quality: Painful Radiation: : Does not radiate Severity: Current: Moderate Severity: Maximum: Moderate Associated with: Reports: Nausea, Vomiting Pertinent Negative: Pt denies other symptoms Recent Healthcare: Recent doctor visit, Recent hospitalization Risk Factors )( AAA Risk Stratification Risk factors reviewed Past Medical History Past Medical History 1. Diabetes Mellitus Type 1, with diabetic gastroparesis and DKA - hospitalized 12/10 - 12/11 2. Low back pain 3. BPH 4. Nocturia 5. Urinary retention 6. Presbiopia 7. Regular Astigmatism 8. MRSA 9. COPD 10. GERD 11. Hyperlipidemia 12. Depression Past Surgical History None reported. Smoking History Never Smoker Social History Alcohol Use: Denies alcohol use Drug Use: Denies drug use Other Social History: Good social support, , Local resident Ambulatory Status Independent Review of Systems Constitutional: Denies: Chills, Fever Respiratory: Denies: Shortness of breath GI: Reports: Abdominal pain, Nausea, Vomiting Complete sys rev & neg: except as marked. Physical Exam Initial Vital Signs Vital Signs (First) Date Time Temp Pulse Resp B/P Pulse Ox O2 Delivery O2 Flow Rate FiO2 12/12/16 14:15 36.7 88 20 197/93 99 Room Air Initial VS: Reviewed Head / Eyes: Atraumatic, Normocephalic, PERRL Neck: Supple, Non-tender, Full range of motion Extremities: Vascular intact, Neuro intact, No swelling, No tenderness Skin: Warm, Dry, No cyanosis Neurologic: Alert, Oriented, Nonfocal Psychiatric: Mood/affect normal, Behavior normal, Normal thought content General/Constitutional: Awake, Alert, No acute distress Respiratory / Chest: Atraumatic, No respiratory distress Cardiovascular: Heart rate NL, Peripheral circulation NL, Pulses = bilaterally Abdomen: Atraumatic, Soft, Non-tender Back: Atraumatic, Inspection NL Interpretation & Diagnostics Lab Results Interpretation Result Diagram: 12/12/16 1400 12/12/16 1625 Test 12/12/16 14:00 12/12/16 15:06 12/12/16 16:25 White Blood Count 7.6th/mm3 (3.8-10.1) Red Blood Count 4.34mil/mm3 (4.40-5.80) Hemoglobin 13.8g/dL (13.8-17.2) Hematocrit 40.5% (41.0-50.0) Mean Corpuscular Volume 93.3fL (81-100) Mean Corpuscular Hemoglobin 31.8pg (27.0-35.0) Mean Corpuscular Hemoglobin Concent 34.1% (32.0-37.0) Red Cell Distribution Width 12.6% (12.3-15.4) Platelet Count 294bil/L (150-400) Neutrophils (%) (Auto) 73.6% (40-74) Lymphocytes (%) (Auto) 19.4% (14-46) Monocytes (%) (Auto) 5.7% (4-12) Eosinophils (%) (Auto) 0.1% (0-5) Basophils (%) (Auto) 0.5% (0-3) Magnesium Level 2.0mg/dL (1.6-2.6) Total Bilirubin 1.0mg/dL (0.0-1.2) Aspartate Amino Transf (AST/SGOT) 37U/L (0-50) Alanine Aminotransferase (ALT/SGPT) 13U/L (0-44) Alkaline Phosphatase 116U/L (25-150) Total Protein 7.2g/dL (6.4-8.4) Albumin 3.8g/dL (3.4-5.0) Lipase 10U/L (13-60) Hold [place] Top Tube Received (Received) Ketones Small (Negative) Urine Color Straw (YELLOW) Urine Appearance Clear (CLEAR,HAZY) Urine pH 6.0 (5.0-8.0) Urine Specific [place] 1.020 (1.003-1.035) Urine Protein Negativemg/dL (NEG,TRACE) Urine Glucose (UA) 1000mg/dL (NEGATIVE) Urine Ketones 80mg/dL (NEGATIVE) Urine Occult Blood Negative (NEGATIVE) Urine Nitrite Negative (NEGATIVE) Urine Bilirubin Negative (NEGATIVE) Urine Urobilinogen Normalmg/dL (NORMAL) Urine Leukocyte Esterase Negative (NEGATIVE) Urine RBC 0-2/hpf (0-2) Urine WBC 0-5/hpf (0-5) Urine Epithelial Cells Few/hpf (NONE-MOD) Urine Crystals None seen (NONE SEEN) Urine Bacteria Few/hpf (NONE-FEW) Urine Hyaline Casts None/lpf (NONE) Urine Granular Casts None seen (NONE SEEN) Urine Waxy Casts None seen (NONE SEEN) Urine Red Blood Cell Casts None seen (NONE SEEN) Urine White Blood Cell Casts None seen (NONE SEEN) Urine Mucus None seen (None Seen) Urine Trichomonas None seen (NONE SEEN) Urine Yeast None (NONE SEEN) Urinalysis Comment None Urine Culture Reflexed Not indicated Sodium Level 138mEq/L (134-144) Potassium Level 4.7mEq/L (3.5-5.2) Chloride Level 99mEq/L (97-108) Carbon Dioxide Level 17mmol/L (18-29) Blood Urea Nitrogen 14mg/dL (6-24) Creatinine 0.75mg/dL (0.76-1.27) Estimat Glomerular Filtration Rate 115mL/min (>59) Glucose Level 339mg/dL (60-99) Calcium Level 8.4mg/dL (8.5-10.1) Lab Results Interpretation: Blood Gas pH 7.4 ECG Interpretation ECG Interpretation: Sinus Rhythm Rate 74 Time: 14:33 Interpreted by: ED physician Re-Eval/Medical Decision Med Decision/Clinical Course NI gap at 1400 = 25 NI gap is 1511 = 22 Time of Eval: 15:28 Patient Status: Condition improved, Pain improved Re-Evaluation/Progress Note: Patient is informed of his reassuring lab results. All questions about possible acidosis are addressed. Time of Eval: 17:13 Re-Evaluation/Progress Note: Nausea and vomiting is still present and is requesting admission. All questions are addressed. 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: Will see patient, Agrees with eval, Agrees with plan, Accepts admit Counseled Regarding: Diagnosis, Lab results, Need for admission Discharge & Departure Primary Impression: Nausea & vomiting Additional Impressions: Diabetes mellitus High anion gap metabolic acidosis Disposition: ADMITTED TO HOSPITAL Vital Signs - All Vital Signs Date Time Temp Pulse Resp B/P Pulse Ox O2 Delivery O2 Flow Rate FiO2 12/12/16 17:51 36.9 80 18 180/68 98 Room Air 12/12/16 17:02 89 18 193/79 98 Room Air 12/12/16 15:11 79 17 186/75 95 Room Air 12/12/16 14:15 36.7 88 20 197/93 99 Room Air )( All Prior VS Reviewed: Yes Condition: Stable Referrals: [facility] Scribe Attestation Portions of this note were transcribed by Jignesh Alvarado. I, Dr. Alaniz personally performed the history, physical exam and medical decision-making; I reviewed and confirmed the accuracy of the information in the transcribed note. Signed by: Tj Coughlin, 12/12/16 1749. Sushil Alaniz MD December 12, 2016 14:31 JIGNESH ALVARADO December 12, 2016 14:32
[2016-12-12] MEDS: Ondansetron 2 mg/mL 2 mL Inj IVPUSH PRN ×4 (14:34→17:08)
[2016-12-12 14:43] LABS: BASOPHILS % (AUTO) 0.5 % (0-3); EOSINOPHILS % (AUTO) 0.1 % (0-5); MONOCYTES % (AUTO) 5.7 % (4-12); Mean Corpuscular Hemoglobin 31.8 pg (27.0-35.0); Mean Corpuscular Volume 93.3 fL (81-100); NEUTROPHILS % (AUTO) 73.6 % (40-74); Platelet Count 294 bil/L (150-400)
[2016-12-12] MEDS ORDERED: Haloperidol 5 mg/mL Inj IVPUSH ONE (14:55)
[2016-12-12 15:11] VITALS: BP 186/75; PULSE 79; RESP 17; O2SAT 95
[2016-12-12 15:17] LABS: APPEARANCE,URINE CLEAR (CLEAR,HAZY); COLOR,URINE STRAW (YELLOW)
[2016-12-12 15:18] LABS: OCCULT BLOOD,URINE NEGATIVE (NEGATIVE); UROBILINOGEN,URINE NORMAL (NORMAL)
[2016-12-12 17:02] VITALS: BP 193/79; PULSE 89; RESP 18; O2SAT 98
[2016-12-12] MEDS ORDERED: HYDROmorphone 1 mg/mL Inj IVPUSH ONE (17:20)
[2016-12-12] MEDS ORDERED: Polyethylene Glycol (PEG) 17 Gm Powder PO PRN (18:05)
[2016-12-12] MEDS ORDERED: HYDROmorphone 1 mg/mL Inj IVPUSH PRN (18:05)
[2016-12-12] MEDS ORDERED: Alum-Mag Hydrox-Simeth 30 mL Suspension PO PRN (18:05)
[2016-12-12] MEDS ORDERED: MetoCLOpramide 5 mg/mL 2 mL Inj IVPUSH PRN (18:05)
[2016-12-12] MEDS ORDERED: Ondansetron 2 mg/mL 2 mL Inj IVPUSH PRN (18:05)
[2016-12-12] MEDS ORDERED: Senna-Docusate 8.6-50 mg Tablet PO PRN (18:05)
--- NOTE | 2016-12-12 18:23 | PCM.HPMED ---
Subjective Date of Service December 12, 2016 Primary Provider: Admitting Physician: Primary Care Physician: Evelyn Muse PA-C Attending Physician: Admit Status: From the Emergency Department, Full Admit, Critical Care Chief Complaint: Nausea and vomiting. DKA. History of Present Illness: This is an unfortunate 56-year-old woman with insulin-dependent diabetes mellitus 2 who was just discharged from the hospital for DKA yesterday. He returned home resumed his insulin pump and did well until this morning. The patient developed acute nausea and vomiting following a cup of cereal this morning. He has since had intractable nausea and vomiting multiple times. Some abdominal pain because of the vomiting. He denies fevers or chills. No hematemesis. No diarrhea. No blood per rectum. The patient had a blood sugar of just over 200 this morning. In the ED he has a recurrent anion gap initially of 25. He denies sensing ketones. The patient denies any clear-cut infectious symptoms and notes that sometimes he will get into repeated bouts of nausea and vomiting with DKA. This can happen without any clear infection or other obvious cause. He denies any cough rhinorrhea or sore throat. No dyspnea. Review of Systems: No change in weight. No confusion or headache. No visual changes. All else is reviewed reviewed and otherwise noncontributory except as noted in the history of present illness Allergies Coded Allergies: morphine (Verified Adverse Reaction, Intermediate, nausea, upset stomach, 10/07/15) pt said hydromorphone makes him less "upset stomach and nausea" than morphine, "not allergic to any meds, just don't like to take it" Home Medications Aspirin Chew (Aspirin Chew) 81 Mg Chew 81 MG PO QAM Citalopram (Citalopram) 20 Mg Tablet 20 MG PO DAILY Insulin Human Lispro (HumaLOG U100 Insulin Vial) 100 Unit/Ml Unit 23.7 UNITS SC DAILY INSULIN PUMP Metoclopramide (Metoclopramide) 10 Mg Tablet 10 MG PO DAILY Omeprazole (Omeprazole) 20 Mg Capsule.dr 20 MG PO BIDWM Simvastatin (Simvastatin) 40 Mg Tablet 40 MG PO HS Tamsulosin (Flomax) 0.4 Mg Capsule 0.4 MG PO HS hydrOXYzine Hcl (HydrOXYzine Hcl) 25 Mg Tablet 25 MG PO QAM Scheduled PRN Albuterol Sulfate (Ventolin HFA Inhaler) 200 Puff/18 Gm Inhaler 2 PUFF INH Q4 PRN PRN For Wheezing Ondansetron ODT (Zofran ODT) 4 Mg Tablet 4 MG PO Q4H PRN PRN For Nausea PMH . Diabetes Mellitus Type 1, with diabetic gastroparesis and DKA - hospitalized 12/10 - 12/11 2. Ron[place] Low back pain 3. BPH 4. Nocturia 5. Urinary retention 6. Presbiopia 7. Regular Astigmatism 8. MRSA 9. COPD 10. GERD 11. Hyperlipidemia 12. Depression Surgical History Non- Family History Positive for diabetes mellitus Social History Hx Alcohol Use: No Hx Substance Use: No Smoking Status: Never Smoker Exam Vital Signs Vital Sign - Last Date Time Temp Pulse Resp B/P Pulse Ox O2 Delivery O2 Flow Rate FiO2 12/12/16 17:51 36.9 80 18 180/68 98 Room Air Exam Oriented 3. No distress. Fluent speech. Normal affect. Normal skull. Normal nose and ears. Anicteric sclera, symmetric pupils Oropharynx is unremarkable, no facial droop. Neck is supple, normal thyroid. No adenopathy. Lungs are clear, normal effort rate. Heart is regular without murmur gallop or rub. Abdomen soft, nondistended or tender. Extremities are free of pedal edema. Good radial and pedal pulses. Skin is free of rash, lesions. No petechiae or ecchymosis. Joints are grossly normal. Cranial nerves are grossly normal. Motor strength is normal in all extremities. Normal muscular tone. Lab and Diagnostics Result Diagram: 12/12/16 1400 12/12/16 1625 Assessment & Plan DKA, POA. The plan is to stop the insulin pump and start an insulin drip with fluid repletion per the DKA protocol. Intractable nausea and vomiting likely related to DKA and gastroparesis, POA. We will use a combination of hydromorphone, ondansetron, and Reglan for symptomatic control while treating DKA. Hypertension, uncontrolled. POA. We will follow symptomatically and treat as indicated for systolic blood pressures of over 170. The patient is full resuscitation Inpatient status with an anticipated length of stay of over 2 nights. Pain Evaluation: Adequate Pain Control Resuscitation Status: CPR: Attempt Resuscitation Time spent 45 minutes Corbin Szymanski MD December 12, 2016 18:22
[2016-12-12] MEDS ORDERED: D5W1/2NS 1,000 mL IV PRN (18:55)
[2016-12-12] MEDS ORDERED: Dextrose 10% 250 ML IV PRN (18:55)
[2016-12-12] MEDS ORDERED: Insulin Human REGular 100 Units/100 mL NS IV SCH ×2 (18:55)
[2016-12-12 20:00] VITALS: BP 142/60; PULSE 70; RESP 21; O2SAT 95
[2016-12-12] MEDS: Heparin 5,000 Unit/mL Inj SUBQ SCH ×2 (20:30→20:54)
[2016-12-12] MEDS: 0.9% Sodium Chloride 1,000 ML IV SCH (20:48)
[2016-12-12 21:55] LABS: Phosphorus 2.7 mg/dL (2.5-4.9)
[2016-12-13] VITALS: BP 118/55; PULSE 73; RESP 19; O2SAT 95
[2016-12-13] MEDS: 0.9% Sodium Chloride 1,000 ML IV SCH (02:20)
[2016-12-13 04:00] VITALS: BP 143/64; PULSE 72; RESP 21; O2SAT 95
--- NOTE | 2016-12-13 04:52 | NUR ---
admit note/ shift note pt received from er at 1940, pt a/o times three, able to ambulate from er stretcher to ccu bed, steady gait, wt done on standing scale, admit done per admit rn in er, pt started on dka protocol upon coming to ccu, hydrating fluids also per orders, insulin pump stopped and disconnected upon coming to ccu, followed dka protocol per orders until 299 pt switched to non dka protocol per orders when anion gap=11, pt states his mother can bring in another insulin pump tubing and needle early in am, c/o nausea but not emesis upon admit but no more c/ o nausea, pt able to take sml amt of diabetic clear liquids by mouth, no abd pain, no sob, ls-cl, ra sats upper 90's, asha uop per urinal, see ccu flow sheet for vital signs, bg results and ivfs, plan: bmp at 0430, anticipate switching to insulin pump again in am,
[2016-12-13] MEDS ORDERED: Potassium Chloride Inj 40 MEQ in 0.9% Sodium Chloride 500 ML IV ONE (05:40)
[2016-12-13 08:30] VITALS: BP 144/78; PULSE 78; RESP 16; O2SAT 99
[2016-12-13] MEDS: Heparin 5,000 Unit/mL Inj SUBQ SCH ×2 (08:30→20:30)
[2016-12-13] MEDS ORDERED: INSULIN PUMP SUBQ SCH (09:05)
--- NOTE | 2016-12-13 15:26 | PCM.PNMED ---
Subjective Date of Service December 13, 2016 Subjective 56-year-old male with history of chronic emesis, complicated by type I diabetes mellitus on insulin pump presents with emesis and mild acidosis one day after discharge for DKA. He felt well after discharge on 12/11, but subsequently developed nausea and vomiting on 12/12. Noted that blood sugar was elevated and came to hospital. He was on basal insulin throughout. Glucose minimally elevated, and anion gap 25, serum pH 7.4. On DKA insulin drip overnight. Feels well today. No nausea and vomiting. Exam Vital Signs Vital Sign - Last Date Time Temp Pulse Resp B/P Pulse Ox O2 Delivery O2 Flow Rate FiO2 12/13/16 08:30 36.7 78 16 144/78 99 Room Air Intake and Output 12/12/16 12/12/16 12/13/16 Cumulative From/Thru 15:00 23:00 07:00 12/12/16 14:32 - 12/13/16 06:13 Intake Total 1000 ml 1000 ml 2459 ml 4459 ml Output Total 800 ml 800 ml Balance 1000 ml 1000 ml 1659 ml 3659 ml Intake Oral 520 ml 520 ml IV Total 1000 ml 1000 ml 1939 ml 3939 ml Output Urine Total 800 ml 800 ml # Bowel Movements 0 0 Exam General: Generally healthy appearing in no acute distress HEENT: sclerae anicteric, oral mucosa moist Neck: no JVD Chest: clear to auscultation Cardiac: S1S2, murmur Abdomen: BS normal, non-tender Extremities: no edema Neuro: A&O, cranial nerves symmetric, motor strength 5/5, coordination normal IVs and Medications Medications Reviewed: Medications were reviewed in detail Lab and Diagnostics Result Diagram: 12/12/16 1400 12/13/16 1220 Assessment & Plan # Recurrent nausea and vomiting, acute on chronic. Patient describes a sporadic pattern with no clear precipitant. No exacerbating or palliating factors. States that his nausea and vomiting triggers DKA frequently. Diagnosed with gastroparesis based on 2 gastric emptying studies in the past. He is unable to organized is date compliant with recommended frequent small meals and frequent blood sugar monitoring - Antiemetics when necessary - Continue his outpatient metoclopramide - Counseling with regard to need for frequent small meals, q 3-4 hr. Suggest protein bars on schedule during daytime when he is active. # Metabolic acidosis, acute. Anion gap normal within 12 hours of admission on IV insulin drip and aggressive hydration. Current picture suggests combination of dehydration and starvation ketosis as well as DKA. He was on basal insulin throughout which makes true DKA very unlikely. Despite anion gap of 25 he did not have significant acidemia on his ABG. - Reinitiate insulin pump at current doses (generally 0.8 unit per hour daytime) - Resolved # Type I diabetes mellitus, acute hyperglycemia. - Patient was counseled today regarding the need for a regular daily schedule with distributed calories and appropriate use of his nutritional and correctional bolus insulin. His current settings seem appropriate at the major problem is compliance and lifestyle irregularity. Disposition: Likely for discharge if no further nausea and vomiting on 12/14 VTE Mechanical Devices: Intermittant Pneumatic CD Resuscitation Status: CPR: Attempt Resuscitation Time spent 35 minutes Waqas Jones MD December 13, 2016 15:26
--- NOTE | 2016-12-13 16:10 | NUR ---
Transfer of care Care of pt transferred to tn at 1300 from CCU RN. Pt. moved to room 2010, and is in stable condition, walking the halls frequently. Self dosing insulin based on our BG checks. No questions or concerns at this time.
[2016-12-13 21:23] VITALS: BP 148/81; PULSE 72; RESP 24; O2SAT 97
--- NOTE | 2016-12-13 21:30 | NUR ---
Refusal of Heparin SQ: Pt refusing Heparin SQ; pt. up ambulating pineda frequently.
--- NOTE | 2016-12-13 22:05 | NUR ---
Transfer to Room 3006: Order received to transfer pt off the floor. Pt stable and ambulated to the third floor to room 3006 at 2200; FINISH MACHINE TENDER accompanied pt with chart. Report given to Woody Mcpherson RN. Insulin pump intact; last blood sugar 97.
[2016-12-14 05:02] VITALS: BP 164/92; PULSE 70; RESP 18; O2SAT 97
--- NOTE | 2016-12-14 07:10 | NUR ---
Transfer Pt arrived from [facility] to [facility] # 3006 approx at 2200. Pt is ambulating indep. BG appropriate. VSS. No overt complications noted. Pt is enthusiastic to go home today.
[2016-12-14] MEDS: Heparin 5,000 Unit/mL Inj SUBQ SCH (07:26)
--- NOTE | 2016-12-14 08:53 | PCM.DIMED ---
Discharge Instructions Date of Service December 14, 2016 Dates of Hospitalization December 12, 2016 at 18:22 Discharge Diagnosis Discharge Diagnosis # Recurrent nausea and vomiting, acute on chronic, likely due to diabetic gastroparesis based on 2 gastric emptying studies in the past. Present on admission. Resolved. # Acute metabolic acidosis, likely combination of acute dehydration, acute starvation ketosis as well as acute DKA.. Present on admission. Resolved. # Type I diabetes mellitus, acute hyperglycemia. Present on admission. Improved glucose levels. Medication Instructions Additional med instructions Resume your home medications as before. Diet Discharge Diet: Heart Healthy, Diabetic Activity Discharge Activity: No restrictions Call your provider Call your provider for: Fever or Chills, Shortness of breath, Bleeding, Chest pain, Vomitting, Excessive diarrhea Patient Instructions Patient Instructions Seek immediate medical attention if any new or worsening signs or symptoms occur. Follow-up plan 1. Followup with your primary care provider in 7-10 days Follow-up Provider: Evelyn Muse PA-C Follow-up with PCP in: 1 week Devon Lacey December 14, 2016 08:53
--- NOTE | 2016-12-14 09:11 | NUR ---
discharge paperwork reviewed, no questions at this time. pt denies pain/distress. pt chooses to walk to private car to return to private home. pt thanks all of the staff for excellent care.
--- NOTE | 2016-12-14 09:14 | NUR ---
Social Work-initial assessment/discharge: Data:See initial assessment. pt is a 56 y/o male who was admitted on 12/12/16 for DKA per H&P. Pt's insurance is [employer] and PCP is Evelyn Quintana. EMR reviewed. pt's readmission score is 5-high risk. Pt just discharged home no needs. SW met with pt at bedside to discuss discharge planning, SW role explained. Pt is alert and oriented x3. Pt resides at home with his mom in [place] where he remains independent with ADLs. Pt uses no DME and does drive. pt has no HH or SNF history. Pt has no terminal computer operator care insurance or VA benefits. SW discussed DPOA/ advanced directive, pt confirms he has completed this, SW encouraged a copy to be brought in. Pt is ready to discharge home today. Pt confirms his mother is providing transport. No discharge needs identified. All updated and agreeable to plan. Assessment:pt who is independent at baseline. Plan:Pt to discharge home today via POV. No discharge needs identified. All updated and agreeable to plan. VENANCIO Stone Addendum: 12/14/16 at 0917 by SEBASTIAN ASHER Amended: Links added.
--- NOTE | 2016-12-14 10:10 | PCM.DC.MED ---
Discharge Summary Date of Service December 14, 2016 Dates of Hospitalization Date of Hospital Admission December 12, 2016 at 18:22 Date of Discharge: December 14, 2016 Providers: Admitting Physician: Corbin Szymanski MD Primary Care Physician: Evelyn Muse PA-C Attending Physician: Corbin Szymanski MD Diagnosis at Time of Discharge Diagnosis at Time of Discharge # Recurrent nausea and vomiting, acute on chronic, likely due to diabetic gastroparesis based on 2 gastric emptying studies in the past. Present on admission. Resolved. # Acute metabolic acidosis, likely combination of acute dehydration, acute starvation ketosis as well as acute DKA.. Present on admission. Resolved. # Type I diabetes mellitus, acute hyperglycemia. Present on admission. Improved glucose levels. Brief History As noted in H&P by Dr. Szymanski: This is an unfortunate 56-year-old woman with insulin-dependent diabetes mellitus 2 who was just discharged from the hospital for DKA yesterday. He returned home resumed his insulin pump and did well until this morning. The patient developed acute nausea and vomiting following a cup of cereal this morning. He has since had intractable nausea and vomiting multiple times. Some abdominal pain because of the vomiting. He denies fevers or chills. No hematemesis. No diarrhea. No blood per rectum. The patient had a blood sugar of just over 200 this morning. In the ED he has a recurrent anion gap initially of 25. He denies sensing ketones. The patient denies any clear-cut infectious symptoms and notes that sometimes he will get into repeated bouts of nausea and vomiting with DKA. This can happen without any clear infection or other obvious cause. He denies any cough rhinorrhea or sore throat. No dyspnea. Hospital Course # Recurrent nausea and vomiting, acute on chronic. Resolved - Diagnosed with gastroparesis based on 2 gastric emptying studies in the past. - Counseled with regard to need for frequent small meals, q 3-4 hr. Suggested protein bars on schedule during daytime when he is active. # Metabolic acidosis, acute. Anion gap normal within 12 hours of admission on IV insulin drip and aggressive hydration. Picture suggested combination of dehydration and starvation ketosis as well as DKA. Resolved. - He was on basal insulin throughout which makes true DKA very unlikely. Despite anion gap of 25 he did not have significant acidemia on his ABG. - Reinitiated insulin pump at current doses (generally 0.8 unit per hour daytime ) # Type I diabetes mellitus, acute hyperglycemia. - Patient was counseled regarding the need for a regular daily schedule with distributed calories and appropriate use of his nutritional and correctional bolus insulin. - His current settings seem appropriate as the major problem is compliance and lifestyle irregularity. Patient's other past medical issues remained otherwise unremarkable. By day of discharge patient reports tolerating PO diet without any further nausea or vomiting and requesting to be discharged home. Exam Vital Signs (Last) Date Time Temp Pulse Resp B/P Pulse Ox O2 Delivery O2 Flow Rate FiO2 12/14/16 05:02 36.8 70 18 164/92 97 Room Air Exam Abdomen: soft, nt, nd, +bs Lungs: CTA bilat CV: RRR Test 12/12/16 14:00 12/12/16 15:06 12/12/16 21:00 12/14/16 05:40 White Blood Count 7.6th/mm3 (3.8-10.1) Red Blood Count 4.34mil/mm3 (4.40-5.80) Hemoglobin 13.8g/dL (13.8-17.2) Hematocrit 40.5% (41.0-50.0) Mean Corpuscular Volume 93.3fL (81-100) Mean Corpuscular Hemoglobin 31.8pg (27.0-35.0) Mean Corpuscular Hemoglobin Concent 34.1% (32.0-37.0) Red Cell Distribution Width 12.6% (12.3-15.4) Platelet Count 294bil/L (150-400) Neutrophils (%) (Auto) 73.6% (40-74) Lymphocytes (%) (Auto) 19.4% (14-46) Monocytes (%) (Auto) 5.7% (4-12) Eosinophils (%) (Auto) 0.1% (0-5) Basophils (%) (Auto) 0.5% (0-3) Lipase 10U/L (13-60) Hold Barr Top Tube Received (Received) Ketones Small (Negative) Urine Color Straw (YELLOW) Urine Appearance Clear (CLEAR,HAZY) Urine pH 6.0 (5.0-8.0) Urine Specific Hines 1.020 (1.003-1.035) Urine Protein Negativemg/dL (NEG,TRACE) Urine Glucose (UA) 1000mg/dL (NEGATIVE) Urine Ketones 80mg/dL (NEGATIVE) Urine Occult Blood Negative (NEGATIVE) Urine Nitrite Negative (NEGATIVE) Urine Bilirubin Negative (NEGATIVE) Urine Urobilinogen Normalmg/dL (NORMAL) Urine Leukocyte Esterase Negative (NEGATIVE) Urine RBC 0-2/hpf (0-2) Urine WBC 0-5/hpf (0-5) Urine Epithelial Cells Few/hpf (NONE-MOD) Urine Crystals None seen (NONE SEEN) Urine Bacteria Few/hpf (NONE-FEW) Urine Hyaline Casts None/lpf (NONE) Urine Granular Casts None seen (NONE SEEN) Urine Waxy Casts None seen (NONE SEEN) Urine Red Blood Cell Casts None seen (NONE SEEN) Urine White Blood Cell Casts None seen (NONE SEEN) Urine Mucus None seen (None Seen) Urine Trichomonas None seen (NONE SEEN) Urine Yeast None (NONE SEEN) Urinalysis Comment None Urine Culture Reflexed Not indicated Osmolality 298 (275-300) Phosphorus Level 2.7mg/dL (2.5-4.9) Magnesium Level 2.0mg/dL (1.6-2.6) Total Bilirubin 0.5mg/dL (0.0-1.2) Aspartate Amino Transf (AST/SGOT) 26U/L (0-50) Alanine Aminotransferase (ALT/SGPT) 10U/L (0-44) Alkaline Phosphatase 94U/L (25-150) Total Protein 5.8g/dL (6.4-8.4) Albumin 3.3g/dL (3.4-5.0) Sodium Level 142mEq/L (134-144) Potassium Level 4.3mEq/L (3.5-5.2) Chloride Level 104mEq/L (97-108) Carbon Dioxide Level 23mmol/L (18-29) Blood Urea Nitrogen 9mg/dL (6-24) Creatinine 0.86mg/dL (0.76-1.27) Estimat Glomerular Filtration Rate 98mL/min (>59) Glucose Level 142mg/dL (60-99) Calcium Level 9.1mg/dL (8.5-10.1) Discharge Medications Discharge Medications Aspirin Chew (Aspirin Chew) 81 Mg Chew 81 MG PO QAM (Reported) Citalopram (Citalopram) 20 Mg Tablet 20 MG PO QAM (Reported) Insulin Human Lispro (HumaLOG U100 Insulin Vial) 100 Unit/Ml Unit 23.7 UNITS SC DAILY (Reported) INSULIN PUMP Metoclopramide (Metoclopramide) 10 Mg Tablet 10 MG PO DAILY (Reported) Omeprazole (Omeprazole) 20 Mg Capsule.dr 20 MG PO BIDWM (Reported) Simvastatin (Simvastatin) 40 Mg Tablet 40 MG PO HS (Reported) Tamsulosin (Flomax) 0.4 Mg Capsule 0.4 MG PO HS (Reported) hydrOXYzine Hcl (HydrOXYzine Hcl) 25 Mg Tablet 25 MG PO QAM (Reported) As needed Albuterol Sulfate (Ventolin HFA Inhaler) 200 Puff/18 Gm Inhaler 2 PUFF INH Q4 PRN PRN For Wheezing (Reported) Ondansetron ODT (Zofran ODT) 4 Mg Tablet 4 MG PO Q4H PRN PRN For Nausea ( Reported) Additional med instructions Resume your home medications as before. Followup Plan Disposition: Home Follow-up plan 1. Followup with your primary care provider in 7-10 days Discharge Diet: Heart Healthy, Diabetic Discharge Activity: No restrictions Patient Instructions Seek immediate medical attention if any new or worsening signs or symptoms occur. Patient expresses clear verbal understanding of mentioned assessment, plan, and recommendations and agrees Follow-up Provider: Evelyn Muse PA-C Follow-up with PCP in: 1 week Time spent 35 min copies to: Evelyn Muse PA-C, Masoud December 14, 2016 10:10
== END 2016-12-14 10:08 | disposition home or self-care (01) | DRG 74 ==
LOC: EDUNIT# 14:00 → SED 14:00 → CCU 18:22 → PCC 12-13 09:01 → MPC 12-13 22:00
PROVIDERS: ADMIT Hospitalist; ATTEND Hospitalist
PROC: 4A033R1 Measurement of Arterial Saturation, Peripheral, Percutaneous Approach (ICD-10-PCS; principal; 2016-12-12)
DX: E10.43 Type 1 diabetes mellitus with diabetic autonomic (poly)neuropathy (principal); E10.10 Type 1 diabetes mellitus with ketoacidosis without coma; K31.84 Gastroparesis; R11.2 Nausea with vomiting, unspecified; K21.9 Gastro-esophageal reflux disease without esophagitis; J44.9 Chronic obstructive pulmonary disease, unspecified; E78.5 Hyperlipidemia, unspecified; N40.0 Benign prostatic hyperplasia without lower urinary tract symptoms